=== PATIENT | male | born 1980 | race Caucasian/White ===

== ENCOUNTER 2018-01-19 10:16 | Emergency (ER) | payer BC, OTHER ==
--- NOTE | 2018-01-19 10:42 | ERPHSYRPT ---
- History of Present Illness Time Seen by Provider: 01/19/18 10:38 Source: patient, family Exam Limitations: no limitations Physician History: The patient is a 37-year-old male with his complaining of left hip and groin pain for 2 months. His dog tripped him 2 days ago and now it is worse. He has not seen a doctor in 3 years. He is able to walk but he limps currently. His feet have been swollen intermittently for the past couple of weeks. They are also mildly swollen today. His past medical history significant for back injury. Method of Injury: twisted Occurred: days ago (2) Quality: sharpness Severity of Pain-Max: moderate Severity of Pain-Current: moderate Lower Extremities Pain: hip: left Modifying Factors: Improves With: nothing Allergies/Adverse Reactions: latex Allergy (Verified 01/19/18 10:50) morphine Allergy (Verified 01/19/18 10:50) - Review of Systems Constitutional: No Fever, No Chills Eyes: No Symptoms Ears, Nose, & Throat: No Symptoms Respiratory: No Cough, No Dyspnea Cardiac: No Chest Pain, No Edema, No Syncope Abdominal/Gastrointestinal: No Abdominal Pain, No Nausea, No Vomiting, No Diarrhea Genitourinary Symptoms: No Dysuria Musculoskeletal: Injury Skin: Other (feet swelling), No Rash Neurological: No Dizziness, No Focal Weakness, No Sensory Changes Psychological: No Symptoms Endocrine: No Symptoms Hematologic/Lymphatic: No Symptoms Immunological/Allergic: No Symptoms All Other Systems: Reviewed and Negative - Nursing Vital Signs Nursing Vital Signs: Initial Vital Signs Temperature 97.9 F 01/19/18 10:21 Pulse Rate 90 01/19/18 10:21 Respiratory Rate 18 01/19/18 10:21 Blood Pressure 125/74 01/19/18 10:21 O2 Sat by Pulse Oximetry 99 01/19/18 10:21 Pain Scale Pain Intensity 8 - Physical Exam General Appearance: alert Eyes, Ears, Nose, Throat Exam: moist mucous membranes Neck Exam: non-tender, supple Cardiovascular/Respiratory Exam: chest non-tender, normal breath sounds, regular rate/rhythm, no respiratory distress Gastrointestinal/Abdominal Exam: non-tender, guarding Back Exam: normal inspection, No vertebral tenderness Hips Exam: left: soft tissue tenderness (tenderness to palpation of left groin and inner thigh) Legs Exam: bilateral leg: normal inspection Knees Exam: bilateral knee: normal inspection Ankle Exam: bilateral ankle: normal inspection Foot Exam: bilateral foot: swelling Neuro/Tendon Exam: normal sensation, normal motor functions Mental Status Exam: alert, oriented x 3, cooperative Skin Exam: normal color, warm, dry SpO2 Interpretation: normal Oxygen Delivery: Room Air - Radiology Exams Left Hip X-ray Interpretation: Reviewed by me, Teleradiologist Report (per Dr Pineda), Other (advanced left hip osteoarthritis) Ordered Tests: Active Orders 24 hr Category Date Time Status HIP UNI (2V) INCL PEL IF DONE Stat Exams 01/19/18 10:43 Completed BMP Stat Lab 01/19/18 11:05 Completed CBC W DIFF Stat Lab 01/19/18 11:05 Completed NT PRO BNP Stat Lab 01/19/18 11:05 Completed Medication Summary Discontinued Medications Generic Name Dose Route Start Last Admin Trade Name Freq PRN Reason Stop Dose Admin Ketorolac Tromethamine 60 mg 01/19/18 10:44 01/19/18 11:06 Toradol 30 Mg Injection IM 01/19/18 10:45 60 mg STAT ONE Administration Ketorolac Tromethamine Confirm 01/19/18 11:00 Toradol 30 Mg Injection Administered 01/19/18 11:01 Dose 60 mg .ROUTE .[facility] Lab/Rad Data: Laboratory Result Diagrams 01/19/18 11:05 01/19/18 11:05 Laboratory Results 01/19/18 01/19/18 Range/Units 11:05 11:05 WBC 7.6 (4.0-10.5) K/mm3 RBC 4.42 (4.1-5.6) M/mm3 Hgb 14.7 (12.5-18.0) gm/dl Hct 44.7 (42-50) % MCV 101.1 H (78-100) fl MCH 33.3 H (26-32) pg MCHC 32.9 (32-36) g/dl RDW 12.9 (11.5-14.0) % Plt Count 208 (150-450) K/mm3 MPV 8.9 (6-9.5) fl Gran % 73.0 H (36.0-66.0) % Eos # (Auto) 0.17 (0-0.5) Absolute Lymphs (auto) 1.35 (1.0-4.6) Absolute Monos (auto) 0.51 (0.0-1.3) Lymphocytes % 17.8 L (24.0-44.0) % Monocytes % 6.7 (0.0-12.0) % Eosinophils % 2.2 (0.00-5.0) % Basophils % 0.3 (0.0-0.4) % Absolute Granulocytes 5.54 (1.4-6.9) Basophils # 0.02 (0-0.4) Sodium 139 (137-145) mmol/L Potassium 4.2 (3.5-5.1) mmol/L Chloride 104 (98-107) mmol/L Carbon Dioxide 27 (22-30) mmol/L Anion Gap 12.0 (5-15) MEQ/L BUN 8 L (9-20) mg/dL Creatinine 0.72 (0.66-1.25) mg/dL Estimated GFR > 60.0 ML/MIN Glucose 121 H (74-106) mg/dL Calcium 9.2 (8.4-10.2) mg/dL NT-Pro-B Natriuret Pep 64.7 (0-450) pg/mL - Progress Progress: improved Counseled pt/family regarding: lab results, diagnosis, need for follow-up, rad results - Departure Time of Disposition: 12:01 Departure Disposition: Home Clinical Impression: Arthritis of left hip, Edema of both feet Condition: Stable Critical Care Time: No Referrals: MICK ALVAREZ [Primary Care Provider] - Additional Instructions: You have arthritis of your left hip. You were given Toradol 60 mg by IM in the ER. UA continue with naproxen 500 mg 2 times a day as needed. You also have swelling of your feet. Your lab results were normal. Take Lasix 20 mg daily for 3 days. You were given a list of local doctors. Follow-up with a local doctor later this week. Prescriptions: Furosemide [Lasix] 20 mg PO DAILY #3 tablet Naproxen 500 mg PO BID PRN #30 tablet.
[2018-01-19] MEDS ORDERED: TORAdol 30 mg Injection IM ONE (10:44)
[2018-01-19] MEDS ORDERED: TORAdol 30 mg Injection ONE (11:00)
--- NOTE | 2018-01-19 11:07 | XRAY ---
Indication: Left hip pain following injury. Comparison: None AP pelvis and 2 views of the left hip demonstrates moderate/advanced left hip osteoarthritis as evidenced by joint space narrowing, sclerosis, spurring, and subcortical cysts. No other bony, articular, or soft tissue abnormalities.
[2018-01-19 11:23] LABS: BASOPHIL % 0.3 % (0.0-0.4); Basophil (Absolute #) 0.02 (0-0.4); Eosinophil % 2.2 % (0.00-5.0); Eosinophil (Absolute #) 0.17 (0-0.5); Granulocyte Absolute (ANC) 5.54 (1.4-6.9); Hematocrit 44.7 % (42-50); Hemoglobin 14.7 gm/dl (12.5-18.0); Lymphocyte (Absolute #) 1.35 (1.0-4.6); Lymphocytes % 17.8 % (24.0-44.0); Mean Cell Volume 101.1 fl (78-100); Mean Corpuscular Hemoglobin 33.3 pg (26-32); Mean Corpuscular Hgb Concent. 32.9 g/dl (32-36); Mean Platelet Volume 8.9 fl (6-9.5); Monocyte (Absolute #) 0.51 (0.0-1.3); Monocytes % 6.7 % (0.0-12.0); Platelet Count 208 K/mm3 (150-450); Red Blood Count 4.42 M/mm3 (4.1-5.6); Red Cell Distribution Width 12.9 % (11.5-14.0); White Blood Count 7.6 K/mm3 (4.0-10.5)
[2018-01-19 11:44] LABS: BLOOD UREA NITROGEN 8 mg/dL (9-20); CHLORIDE 104 mmol/L (98-107); Calcium 9.2 mg/dL (8.4-10.2); Carbon Dioxide 27 mmol/L (22-30); Creatinine 1 0.72 mg/dL (0.66-1.25); Glucose 121 mg/dL (74-106); NT PRO BNP 64.7 pg/mL (0-450); Potassium 4.2 mmol/L (3.5-5.1); SODIUM 139 mmol/L (137-145)
[2018-01-19 12:28] VITALS: BP 109/63; PULSE 75; O2SAT 98
== END 2018-01-19 12:27 | disposition home or self-care (01) ==
LOC: ED 10:16
DX: M16.12 Unilateral primary osteoarthritis, left hip (principal); R60.9 Edema, unspecified
CPT/HCPCS: 36415; 73502; 80048; 83880; 85025; 96372; 99284; J1885